=== PATIENT | male | born 1935 | race Caucasian/White ===

== ENCOUNTER 2021-08-23 10:59 | Outpatient (NON) | payer MEDICARE, SELFPAY ==
[2021-08-23 11:08] LABS: Add Urine Microscopic? YES; Bilirubin Urine Negative (Negative); Blood Urine 1+ (Negative); Color Urine Light Yellow (Yellow); Glucose Urine UA Negative (Negative); Ketones Urine Trace (Negative); Leukocyte Esterase Ur 3+ LEU/UL (Negative); Nitrate Urine Positive (Negative); Protein Urine Trace (Negative); Specific Grav Ur 1.015 (1.010-1.020); Urobilinogen Urine 0.2 mg/dL (0.2-1.0); pH Urine 8.5 (5.0-8.0)
[2021-08-23 11:15] LABS: Appearance Urine Cloudy (Clear)
[2021-08-23 11:16] LABS: Amorphous Sediment Urine Moderate; Bacteria Urine 2+ /hpf
== END 2021-08-23 11:00 | disposition home or self-care (01) ==
LOC: CHSLAB 11:01
PROVIDERS: Visit Provider Family Medicine
DX: N39.0 Urinary tract infection, site not specified (principal); N40.1 Benign prostatic hyperplasia with lower urinary tract symptoms; R33.8 Other retention of urine; Z46.6 Encounter for fitting and adjustment of urinary device
CPT/HCPCS: 81001; 87077; 87086; 87088; 87186

== ENCOUNTER 2023-05-06 13:10 | Outpatient (NON) | payer MEDICARE, SELFPAY ==
[2023-05-06 13:19] LABS: Bilirubin Urine Negative (Negative); Blood Urine 3+ (Negative); Glucose Urine UA Negative (Negative); Ketones Urine Negative (Negative); Leukocyte Esterase Ur 2+ LEU/UL (Negative); Nitrate Urine Positive (Negative); Protein Urine 1+ (Negative); Specific Grav Ur >= 1.030 (1.010-1.020); Urobilinogen Urine 0.2 mg/dL (0.2-1.0)
[2023-05-06 13:26] LABS: Add Urine Microscopic? YES; Appearance Urine Slightly Cloudy (Clear); Bacteria Urine 1+ /hpf; Color Urine Yellow (Yellow); WBC Urine 31-50 /hpf (0-3)
== END 2023-05-06 13:11 | disposition home or self-care (01) ==
LOC: CHSLAB 13:11
PROVIDERS: Visit Provider Family Medicine
DX: N39.0 Urinary tract infection, site not specified (principal)
CPT/HCPCS: 81001; 87077; 87086; 87088; 87186

== ENCOUNTER 2023-07-18 10:14 | Outpatient (NON) | payer MEDICARE, SELFPAY ==
[2023-07-18 10:49] LABS: Appearance Urine Clear (Clear); Bilirubin Urine 1+ (Negative); Blood Urine 3+ (Negative); Glucose Urine UA Negative (Negative); Ketones Urine Trace (Negative); Leukocyte Esterase Ur 2+ (Negative); Nitrate Urine Negative (Negative); Protein Urine 3+ (Negative); Specific Grav Ur 1.025 (1.010-1.020); pH Urine 5.5 (5.0-8.0)
[2023-07-18 10:54] LABS: Add Urine Microscopic? YES; Color Urine Dark Yellow (Yellow); Renal Epithelial Cells Urine Few /hpf; Squamous Epithelial Cell Urine Rare /hpf (Few); WBC Urine >75 /hpf (0-3)
[2023-07-18 10:55] LABS: Bacteria Urine 2+ /hpf
== END 2023-07-18 10:15 | disposition home or self-care (01) ==
LOC: CHSLAB 10:17
PROVIDERS: Visit Provider Family Medicine
DX: N39.0 Urinary tract infection, site not specified (principal)
CPT/HCPCS: 81001; 87077; 87086; 87088; 87186